=== PATIENT | female | born 1985 | race Caucasian/White ===

== ENCOUNTER 2019-11-15 15:34 | Emergency (ER) | payer OTHER ==
--- NOTE | 2019-11-15 16:41 | EDM.PDOC ---
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 SIDE PAIN Time Seen by Provider: 11/15/19 15:38 Source of Information: Reports: Patient History Limitations: Reports: No Limitations - History of Present Illness INITIAL COMMENTS - FREE TEXT/NARRATIVE: HISTORY AND PHYSICAL: History of present illness: Patient is a 34-year-old female who presents to the ED today with concern of right side pain. Patient states she is approximately 35 weeks in gestation and follows along with Flor Carrasco, scale manager. Patient states she was cleared in the labor and delivery for possible labor before coming down here to the ER to be evaluated. Patient states the pain is in her side and started since this morning. Patient denies any trauma, injury, or falls. Patient denies any associative symptoms. Patient denies any change in vaginal discharge, leaking of water fluids from vagina, or vaginal bleeding. Patient denies any abdominal cramping or lower abdominal pain. Patient denies any back pain. Patient denies fever, chills, chest pain, shortness of breath, or cough. Denies headache, neck stiff ness, change in vision, syncope, or near syncope. Denies nausea, vomiting, diarrhea, constipation, or dysuria. Has not noted any blood in urine or stool. Patient has been eating and drinking appropriately. Review of systems: As per history of present illness and below otherwise all systems reviewed and negative. Past medical history: As per history of present illness and as reviewed below otherwise noncontributory. Surgical history: As per history of present illness and as reviewed below otherwise noncontributory. Social history: See social history for further information Family history: As per history of present illness and as reviewed below otherwise noncontributory. Physical exam: General: Patient is alert, oriented, and in no acute distress. Patient sitting comfortably on exam table. HEENT: Atraumatic, normocephalic, pupils equal and reactive bilaterally, negative for conjunctival pallor or scleral icterus, mucous membranes moist, TMs normal bilaterally, throat clear, neck supple, nontender, trachea midline. No drooling or trismus noted. No meningeal signs. No hot potato voice noted. Lungs: Clear to auscultation, breath sounds equal bilaterally, chest nontender. Heart: S1S2, regular rate and rhythm without overt murmur Abdomen: Physical exam of abdomen is limited due to gravid. Patient points to right sided rib area but negative pain to palpation of this area or entire abdomen. Soft, nondistended, nontender. Negative for masses or hepatosplenomegaly. Negative for costovertebral tenderness. Pelvis: Stable nontender. Genitourinary: Deferred. Rectal: Deferred. Skin: Intact, warm, dry. No lesions or rashes noted. Extremities: Atraumatic, negative for cords or calf pain. Neurovascular unremarkable. Neuro: Awake, alert, oriented. Cranial nerves II through XII unremarkable. Cerebellum unremarkable. Motor and sensory unremarkable throughout. Exam nonfocal. Notes: FHT at bedside 137. Did call and speak to the labor and delivery unit who confirms that they have cleared patient from labor and delivery standpoint just before she came down to the emergency room. I did call and speak personally speak to Flor Carrasco, scale manager on-call, and thoroughly discussed patient's case. She had and states she did just seen patient on the labor and delivery unit just before her coming to the ED. Flor states for patient to go home take some Tylenol and relax and that if pain does not subside to come back to labor and delivery tonight. If patient's pain does subside, Flor states she will see her tomorrow morning in the clinic. Voices understanding and is agreeable to plan of care. Denies any further questions or concerns at this time. Diagnostics: CBC, CMP, UA, Lipase, EKG, trop Therapeutics: Tylenol Prescription: None Impression: Right flank/rib pain , 35 weeks Plan: 1. You can take Tylenol as directed for pain and discomfort. This is safe to use in . 2. Follow-up with Flor Carrasco in the clinic in the morning as discussed or return to labor and delivery as discussed. Call the clinic in the morning to establish an appointment time. 3. Return to the ED as needed and as discussed. Definitive disposition and diagnosis as appropriate pending reevaluation and review of above. right side Pain Score (Numeric/FACES): 6 - Related Data Allergies Allergy/AdvReac Type Severity Reaction Status Date / Time No Known Allergies Allergy Verified 11/15/19 14:22 Home Meds: Home Meds Pnv No.95/Ferrous Fum/Folic AC [ Multivitamin Tablet] 1 tab PO DAILY [History] Past Medical History - Past Surgical History GI Surgical History: Reports: Hernia Repair/Other Social & Family History - Family History Family Medical History: Noncontributory - Tobacco Use Smoking Status *Q: Former Smoker Used Tobacco, but Quit: Yes Month/Year Tobacco Last Used: [id number] - Recreational Drug Use Recreational Drug Use: No ED ROS GENERAL - Review of Systems Review Of Systems: Comprehensive ROS is negative, except as noted in HPI. ED EXAM, GENERAL - Physical Exam Exam: See Below (see dictation) Course - Vital Signs Last Recorded V/S: Last Vital Signs Temp 98.7 F 11/15/19 15:53 Pulse 99 11/15/19 15:53 Resp 18 11/15/19 15:53 BP 96/58 L 11/15/19 15:53 Pulse Ox 100 11/15/19 15:53 - Orders/Labs/Meds Orders: Active Orders 24 hr Category Date Time Status Communication Order [RC] STAT Care 11/15/19 16:40 Active EKG Documentation Completion [RC] STAT Care 11/15/19 16:13 Active CULTURE URINE [RM] Stat Lab 11/15/19 16:44 Received Labs: Laboratory Tests 11/15/19 11/15/19 11/15/19 Range/Units 16:27 16:27 16:27 WBC 10.71 (4.0-11.0) K/uL RBC 3.86 L (4.30-5.90) M/uL Hgb 10.6 L (12.0-16.0) g/dL Hct 32.7 L (36.0-46.0) % MCV 84.7 (80.0-98.0) fL MCH 27.5 (27.0-32.0) pg MCHC 32.4 (31.0-37.0) g/dL RDW Std Deviation 42.4 (28.0-62.0) fl RDW Coeff of Sarah 14 (11.0-15.0) % Plt Count 286 (150-400) K/uL MPV 10.30 (7.40-12.00) fL Neut % (Auto) 85.7 H (48.0-80.0) % Lymph % (Auto) 9.7 L (16.0-40.0) % Humphreys % (Auto) 4.1 (0.0-15.0) % Eos % (Auto) 0.4 (0.0-7.0) % Baso % (Auto) 0.1 (0.0-1.5) % Neut # (Auto) 9.2 H (1.4-5.7) K/uL Lymph # (Auto) 1.0 (0.6-2.4) K/uL Humphreys # (Auto) 0.4 (0.0-0.8) K/uL Eos # (Auto) 0.0 (0.0-0.7) K/uL Baso # (Auto) 0.0 (0.0-0.1) K/uL Nucleated RBC % 0.0 /100WBC Nucleated RBCs # 0 K/uL Sodium 139 (136-145) mmol/L Potassium 3.1 L (3.5-5.1) mmol/L Chloride 103 (98-107) mmol/L Carbon Dioxide 24.9 (21.0-32.0) mmol/L BUN 4 L (7.0-18.0) mg/dL Creatinine 0.7 (0.6-1.0) mg/dL Est Cr Clr Drug Dosing 102.86 mL/min Estimated GFR (MDRD) > 60.0 ml/min Glucose 142 H (74-106) mg/dL Calcium 8.8 (8.5-10.1) mg/dL Total Bilirubin 0.2 (0.2-1.0) mg/dL AST 15 (15-37) IU/L ALT 18 (14-63) IU/L Alkaline Phosphatase 132 H (46-116) U/L Troponin I < 0.050 (0.000-0.056) ng/mL Total Protein 6.6 (6.4-8.2) g/dL Albumin 2.5 L (3.4-5.0) g/dL Globulin 4.1 H (2.6-4.0) g/dL Albumin/Globulin Ratio 0.6 L (0.9-1.6) Lipase 120 (73-393) U/L Urine Color Urine Appearance Urine pH (5.0-8.0) Ur Specific [place] (1.001-1.035) Urine Protein (NEGATIVE) mg/dL Urine Glucose (UA) (NEGATIVE) mg/dL Urine Ketones (NEGATIVE) mg/dL Urine Occult Blood (NEGATIVE) Urine Nitrite (NEGATIVE) Urine Bilirubin (NEGATIVE) Urine Urobilinogen (<2.0) EU/dL Ur Leukocyte Esterase (NEGATIVE) Urine RBC (0-2/HPF) Urine WBC (0-5/HPF) Ur Epithelial Cells (NONE-FEW) Amorphous Sediment (NEGATIVE) Urine Bacteria (NEGATIVE) 11/15/19 Range/Units 16:44 WBC (4.0-11.0) K/uL RBC (4.30-5.90) M/uL Hgb (12.0-16.0) g/dL Hct (36.0-46.0) % MCV (80.0-98.0) fL MCH (27.0-32.0) pg MCHC (31.0-37.0) g/dL RDW Std Deviation (28.0-62.0) fl RDW Coeff of Sarah (11.0-15.0) % Plt Count (150-400) K/uL MPV (7.40-12.00) fL Neut % (Auto) (48.0-80.0) % Lymph % (Auto) (16.0-40.0) % Humph[place]ys % (Auto) (0.0-15.0) % Eos % (Auto) (0.0-7.0) % Baso % (Auto) (0.0-1.5) % Neut # (Auto) (1.4-5.7) K/uL Lymph # (Auto) (0.6-2.4) K/uL [place] # (Auto) (0.0-0.8) K/uL Eos # (Auto) (0.0-0.7) K/uL Baso # (Auto) (0.0-0.1) K/uL Nucleated RBC % /100WBC Nucleated RBCs # K/uL Sodium (136-145) mmol/L Potassium (3.5-5.1) mmol/L Chloride (98-107) mmol/L Carbon Dioxide (21.0-32.0) mmol/L BUN (7.0-18.0) mg/dL Creatinine (0.6-1.0) mg/dL Est Cr Clr Drug Dosing mL/min Estimated GFR (MDRD) ml/min Glucose (74-106) mg/dL Calcium (8.5-10.1) mg/dL Total Bilirubin (0.2-1.0) mg/dL AST (15-37) IU/L ALT (14-63) IU/L Alkaline Phosphatase (46-116) U/L Troponin I (0.000-0.056) ng/mL Total Protein (6.4-8.2) g/dL Albumin (3.4-5.0) g/dL Globulin (2.6-4.0) g/dL Albumin/Globulin Ratio (0.9-1.6) Lipase (73-393) U/L Urine Color YELLOW Urine Appearance SLT CLOUDY Urine pH 7.0 (5.0-8.0) Ur Specific [place] 1.025 (1.001-1.035) Urine Protein TRACE H (NEGATIVE) mg/dL Urine Glucose (UA) 100 H (NEGATIVE) mg/dL Urine Ketones 15 H (NEGATIVE) mg/dL Urine Occult Blood NEGATIVE (NEGATIVE) Urine Nitrite NEGATIVE (NEGATIVE) Urine Bilirubin NEGATIVE (NEGATIVE) Urine Urobilinogen 0.2 (<2.0) EU/dL Ur Leukocyte Esterase SMALL H (NEGATIVE) Urine RBC 0-2 (0-2/HPF) Urine WBC 1-3 (0-5/HPF) Ur Epithelial Cells MODERATE (NONE-FEW) Amorphous Sediment LIGHT (NEGATIVE) Urine Bacteria FEW (NEGATIVE) Meds: Medications Discontinued Medications Generic Name Dose Route Start Last Admin Trade Name Miguelq PRN Reason Stop Dose Admin Acetaminophen 1,000 mg 11/15/19 17:45 Tylenol Extra Strength PO 11/15/19 17:46 ONETIME ONE Departure - Departure Time of Disposition: 17:56 Disposition: Home, Self-Care 01 Clinical Impression: Right flank pain Qualifiers: Weeks of gestation: 35 weeks Qualified Code(s): Z3A.35 - 35 weeks gestation of - Discharge Information Referrals: Flor Carrasco CNM [Primary Care Provider] - Forms: ED Department Discharge Additional Instructions: The following information is given to patients seen in the emergency department who are being discharged to home. This information is to outline your options for follow-up care. We provide all patients seen in our emergency department with a follow-up referral. The need for follow-up, as well as the timing and circumstances, are variable depending upon the specifics of your emergency department visit. If you don't have a primary care physician on staff, we will provide you with a referral. We always advise you to contact your personal physician following an emergency department visit to inform them of the circumstance of the visit and for follow-up with them and/or the need for any referrals to a consulting specialist. The emergency department will also refer you to a specialist when appropriate. This referral assures that you have the opportunity for follow-up care with a specialist. All of these measure are taken in an effort to provide you with optimal care, which includes your follow-up. Under all circumstances we always encourage you to contact your private physician who remains a resource for coordinating your care. When calling for follow-up care, please make the office aware that this follow-up is from your recent emergency room visit. If for any reason you are refused follow-up, please contact the [facility] Emergency Department at and asked to speak to the emergency department charge nurse. [facility] [address] [place] [address] [place] [address] 1. You can take Tylenol as directed for pain and discomfort. This is safe to use in . 2. Follow-up with Flor Carrasco in the clinic in the morning as discussed or return to labor and delivery as discussed. Call the clinic in the morning to establish an appointment time. 3. Return to the ED as needed and as discussed. Sepsis Event Note - Evaluation Sepsis Screening Result: No Definite Risk - Focused Exam Vital Signs: Vital Signs Temp Pulse Resp BP Pulse Ox 11/15/19 15:53 98.7 F 99 18 96/58 L 100 Date Exam was Performed: 11/15/19 Time Exam was Performed: 17:56 - My Orders Last 24 Hours: My Active Orders 11/15/19 16:13 EKG Documentation Completion [RC] STAT 11/15/19 16:40 Communication Order [RC] STAT 11/15/19 16:44 CULTURE URINE [RM] Stat - Assessment/Plan Last 24 Hours: My Active Orders 11/15/19 16:13 EKG Documentation Completion [RC] STAT 11/15/19 16:40 Communication Order [RC] STAT 11/15/19 16:44 CULTURE URINE [RM] Stat
[2019-11-15 17:21] LABS: BLOOD UREA NITROGEN,BUN 4 mg/dL (7.0-18.0); CARBON DIOXIDE,CO2 24.9 mmol/L (21.0-32.0); CHLORIDE,CL 103 mmol/L (98-107); GLUCOSE RANDOM 142 mg/dL (74-106); LIPASE 120 U/L (73-393); POTASSIUM,K 3.1 mmol/L (3.5-5.1); SODIUM,NA 139 mmol/L (136-145)
[2019-11-15] MEDS ORDERED: Acetaminophen 500 MG Tab PO ONE (17:45)
== END 2019-11-15 18:15 | disposition home or self-care (01) ==
LOC: MW.ED 15:34
DX: O99.89 Other specified diseases and conditions complicating pregnancy, childbirth and the puerperium (principal); R10.9 Unspecified abdominal pain; Z87.891 Personal history of nicotine dependence; Z3A.35 35 weeks gestation of pregnancy
CPT/HCPCS: 36415; 80053; 81001; 83690; 84484; 85025; 87086; 93005; 99284; A9270

== ENCOUNTER 2019-11-15 21:56 | Observation (INO) | payer OTHER ==
[2019-11-15] MEDS ORDERED: Acetaminophen/oxyCODONE 325-5 MG Tab ONE (22:05)
[2019-11-15] MEDS ORDERED: Calcium Carbonate 500 MG Tab.Chew PO PRN (23:48)
[2019-11-15] MEDS ORDERED: Calcium Carbonate 500 MG Tab.Chew ONE (23:54)
[2019-11-16] MEDS: Acetaminophen/oxyCODONE 325-5 MG Tab PO PRN ×3 (02:28→11:55)
== END 2019-11-16 12:05 | disposition home or self-care (01) ==
LOC: MW.OB 21:56 → MW.OBCHECK 21:56 → MW.OB 23:30
PROVIDERS: ADMIT Obstetrics & Gynecology; ATTEND Obstetrics & Gynecology
DX: O99.89 Other specified diseases and conditions complicating pregnancy, childbirth and the puerperium (principal); R10.9 Unspecified abdominal pain; Z87.891 Personal history of nicotine dependence; Z3A.35 35 weeks gestation of pregnancy
CPT/HCPCS: 59025; A9270-GY; G0378

== ENCOUNTER 2019-12-13 00:13 | Inpatient (IN) | payer OTHER ==
[2019-12-13] MEDS ORDERED: Carboprost Tromethamine 250 MCG/1 ML Amp IM PRN (00:34)
[2019-12-13] MEDS ORDERED: Methylergonovine 0.2 MG/1 ML Amp IM PRN (00:34)
[2019-12-13] MEDS ORDERED: Water For Irrigation,Sterile 1,000 ML Container IRR PRN (00:34)
[2019-12-13] MEDS ORDERED: Nalbuphine 10 MG/1 ML Vial IVPUSH PRN (00:34)
[2019-12-13] MEDS ORDERED: Tranexamic Acid 1,000 MG in Sodium Chloride 0.9% 100 ML IV PRN (00:34)
[2019-12-13] MEDS ORDERED: Sodium Chloride 0.9% 2.5 ML Syringe FLUSH PRN (00:34)
[2019-12-13] MEDS ORDERED: Misoprostol 200 MCG Tab PO PRN (00:34)
[2019-12-13] MEDS ORDERED: Terbutaline 1 MG/ML SDV SUBCUT PRN (00:34)
[2019-12-13] MEDS ORDERED: Sodium Chloride 0.9% 10 ML Syringe FLUSH PRN (00:34)
[2019-12-13] MEDS ORDERED: Lidocaine 1% 50 ML MDV INJECT PRN (00:34)
[2019-12-13] MEDS ORDERED: Oxytocin/0.9 % Sodium Chloride 30 UNIT/500 ML BAG IV SCH ×2 (00:45)
[2019-12-13] MEDS ORDERED: Misoprostol 25 MCG (1/4 of 100 MCG) Tab VAG PRN ×2 (01:00→05:00)
[2019-12-13] MEDS: Misoprostol 25 MCG (1/4 of 100 MCG) Tab PO SCH ×2 (01:26→11:57)
--- NOTE | 2019-12-13 08:12 | PCM.LDHP ---
L&D History of Present Illness - General Date of Service: 12/13/19 Admit Problem/Dx: Patient Status Order with Admit Dx/Problem 12/13/19 00:35 Patient Status [ADT] Routine Patient Status [ADT] Routine Admission Diagnosis/Problem Admission Diagnosis/Problem Planned Source of Information: Patient History Limitations: Reports: No Limitations - History of Present Illness Improves with: Reports: None Worsens with: Reports: None Associated Symptoms: Reports: N - Related Data Allergies/Adverse Reactions: Allergies Allergy/AdvReac Type Severity Reaction Status Date / Time No Known Allergies Allergy Verified 12/13/19 00:33 Home Medications: Home Meds Pnv No.95/Ferrous Fum/Folic AC [ Multivitamin Tablet] 1 tab PO DAILY [History] Past Medical History - Past Health History Medical/Surgical History: Denies Medical/Surgical History HEENT History: Reports: None Cardiovascular History: Reports: None Respiratory History: Reports: None Gastrointestinal History: Reports: None Genitourinary History: Reports: None 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: Musculoskeletal History: Reports: None Neurological History: Reports: None Psychiatric History: Reports: None Endocrine/Metabolic History: Reports: None Hematologic History: Reports: None Immunologic History: Reports: None Oncologic (Cancer) History: Reports: None Dermatologic History: Reports: None - Infectious Disease History Infectious Disease History: Reports: Chicken Pox - Past Surgical History Head Surgeries/Procedures: Reports: None HEENT Surgical History: Reports: None Cardiovascular Surgical History: Reports: None GI Surgical History: Reports: Hernia Repair/Other Female Surgical History: Reports: None Endocrine Surgical History: Reports: None Neurological Surgical History: Reports: None Musculoskeletal Surgical History: Reports: None Oncologic Surgical History: Reports: None Dermatological Surgical History: Reports: None Social & Family History - Family History Family Medical History: Noncontributory HEENT: Reports: None Cardiac: Reports: Hypertension Respiratory: Reports: None GI: Reports: None : Reports: None OBGYN: Reports: None Musculoskeletal: Reports: None Neurological: Reports: None Psychiatric: Reports: None Endocrine/Metabolic: Reports: None Hematologic: Reports: None Immunologic: Reports: None Dermatologic: Reports: None Oncologic: Reports: Breast - Tobacco Use Smoking Status *Q: Never Smoker Second Hand Smoke Exposure: No - Caffeine Use Caffeine Use: Reports: Coffee, Soda - Recreational Drug Use Recreational Drug Use: No H&P Review of Systems - Review of Systems: Review Of Systems: See Below General: Reports: No Symptoms HEENT: Reports: No Symptoms Pulmonary: Reports: No Symptoms Cardiovascular: Reports: No Symptoms Gastrointestinal: Reports: No Symptoms Genitourinary: Reports: No Symptoms Musculoskeletal: Reports: No Symptoms Skin: Reports: No Symptoms Psychiatric: Reports: No Symptoms Neurological: Reports: No Symptoms Hematologic/Lymphatic: Reports: No Symptoms Immunologic: Reports: No Symptoms L&D Exam - Exam Exam: See Below - Vital Signs Weight: 72.575 kg - OB Specific Contraction Intensity: Mild to Moderate Movement: Active Heart Tones: Present Presentation: Vertex - Cameron Score Cameron Score Cervix Position: Midposition Cameron Score Consistency: Soft Cameron Score Effacement: 51-70% Cameron Score Dilation: 3-4 cm Cameron Score 's Station: -3 Cameron Score Total: 7 - Exam General: Alert, Oriented HEENT: PERRLA, Conjunctiva Clear, EACs Clear, EOMI, Hearing Intact, Mucosa Moist & [place], Nares Patent, Normal Nasal Septum, Posterior Pharynx Clear, TMs Clear Neck: Supple, Trachea Midline Lungs: Clear to Auscultation, Normal Respiratory Effort Cardiovascular: Regular Rate, Regular Rhythm GI/Abdominal Exam: Normal Bowel Sounds, Soft, Non-Tender, No Organomegaly, No Distention, No Abnormal Bruit, No Mass, Pelvis Stable Rectal Exam: Normal Exam, Normal Rectal Tone Genitourinary: Normal external exam, Normal bimanual exam, Normal speculum exam Back Exam: Normal Inspection, Full Range of Motion Extremities: Normal Inspection, Normal Range of Motion, Non-Tender, No Pedal Edema, Normal Capillary Refill Skin: Warm, Dry, Intact Neurological: Cranial Nerves Intact, Reflexes Equal Bilateral Psychiatric: Alert, Normal Affect, Normal Mood - Patient Data Lab Results Last 24 hrs: Laboratory Results - last 24 hr 12/13/19 12/13/19 Range/Units 00:44 00:44 WBC 7.24 (4.0-11.0) K/uL RBC 4.06 L (4.30-5.90) M/uL Hgb 10.7 L (12.0-16.0) g/dL Hct 33.3 L (36.0-46.0) % MCV 82.0 (80.0-98.0) fL MCH 26.4 L (27.0-32.0) pg MCHC 32.1 (31.0-37.0) g/dL RDW Std Deviation 42.5 (28.0-62.0) fl RDW Coeff of Sarah 15 (11.0-15.0) % Plt Count 275 (150-400) K/uL MPV 10.90 (7.40-12.00) fL Blood Type AB POSITIVE Antibody Screen NEGATIVE Result Diagrams: 12/13/19 00:44 Problem List Initiated/Reviewed/Updated: Yes Orders Last 24hrs: Active Orders 24 hr Category Date Time Status Patient Status [ADT] Routine ADT 12/13/19 00:35 Active Patient Status [ADT] Routine ADT 12/13/19 00:35 Active Bedrest Bathroom Privileges [RC] ASDIRECTED Care 12/13/19 00:35 Active Communication Order [RC] ASDIRECTED Care 12/13/19 00:35 Active Communication Order [RC] ASDIRECTED Care 12/13/19 00:35 Active Communication Order [RC] ASDIRECTED Care 12/13/19 00:35 Active May Shower [RC] ASDIRECTED Care 12/13/19 00:35 Active Notify Provider [RC] PRN Care 12/13/19 00:35 Active Notify Provider [RC] PRN Care 12/13/19 00:35 Active Notify Provider [RC] PRN Care 12/13/19 00:35 Active Notify Provider [RC] STAT Care 12/13/19 00:35 Active Oxygen Therapy [RC] ASDIRECTED Care 12/13/19 00:35 Active Up ad [place] [RC] ASDIRECTED Care 12/13/19 00:35 Active Vital Signs [RC] PER UNIT ROUTINE Care 12/13/19 00:35 Active Regular Diet [DIET] Diet 12/13/19 Breakfast Active RPR (SYPHILIS SERO) W/ RFLX [REF] Routine Lab 12/13/19 00:44 Received Carboprost Tromethamine [Hemabate DS] Med 12/13/19 00:34 Active 250 mcg IM ASDIRECTED PRN Lactated Ringers [Ringers, Lactated] 1,000 ml Med 12/13/19 00:45 Active IV ASDIRECTED Lidocaine 1% [Xylocaine 1%] Med 12/13/19 00:34 Active 50 ml INJECT ONETIME PRN Methylergonovine [Methergine] Med 12/13/19 00:34 Active 0.2 mg IM ASDIRECTED PRN Nalbuphine [Nubain] Med 12/13/19 00:34 Active 10 mg IVPUSH Q1H PRN Oxytocin/0.9 % Sodium Chloride [Oxytocin 30 Unit/500 ML Med 12/13/19 00:45 Active -NS] 30 unit in 500 ml IV TITRATE Oxytocin/0.9 % Sodium Chloride [Oxytocin 30 Unit/500 ML Med 12/13/19 00:45 Active -NS] 30 unit in 500 ml IV TITRATE Sodium Chloride 0.9% [Saline Flush] Med 12/13/19 00:34 Active 10 ml FLUSH ASDIRECTED PRN Sodium Chloride 0.9% [Saline Flush] Med 12/13/19 00:34 Active 2.5 ml FLUSH ASDIRECTED PRN Terbutaline [Brethine] Med 12/13/19 00:34 Active 0.25 mg SUBCUT ASDIRECTED PRN Tranexamic Acid [Cyklokapron] 1,000 mg Med 12/13/19 00:34 Active Sodium Chloride 0.9% [Normal Saline] 100 ml IV ONETIME Water For Irrigation,Sterile [Sterile Water for Med 12/13/19 00:34 Active Irrigation] 1,000 ml IRR ASDIRECTED PRN miSOPROStoL [Cytotec] Med 12/13/19 00:34 Active 200 mcg PO ONETIME PRN miSOPROStoL [Cytotec] Med 12/13/19 01:00 Active 25 mcg PO Q4H miSOPROStoL [Cytotec] Med 12/13/19 01:00 Active 25 mcg VAG ONETIME PRN miSOPROStoL [Cytotec] Med 12/13/19 05:00 Active 25 mcg VAG Q4H PRN Scalp Electrode [WOMSER] Per Unit Routine Oth 12/13/19 00:35 Ordered Medication Administration Instruction [OM.PC] Q3H Oth 12/13/19 00:45 Ordered Peripheral IV Insertion Adult [OM.PC] Routine Oth 12/13/19 00:35 Ordered Resuscitation Status Routine Resus Stat 12/13/19 00:34 Ordered Medication Orders Carboprost Tromethamine (Hemabate Ds) 250 mcg IM ASDIRECTED PRN PRN Reason: Post Hemorrhage Lactated Ringer's (Ringers, Lactated) 1,000 mls @ 150 mls/hr IV ASDIRECTED DWAINE Oxytocin/Sodium Chloride (Oxytocin 30 Unit/500 Ml-Ns) 30 unit in 500 mls @ 2 mls/hr IV TITRATE DWAINE; Protocol Oxytocin/Sodium Chloride (Oxytocin 30 Unit/500 Ml-Ns) 30 unit in 500 mls @ 500 mls/hr IV TITRATE DWAINE Tranexamic Acid 1,000 mg/ (Sodium Chloride) 110 mls @ 660 mls/hr IV ONETIME PRN PRN Reason: Bleeding Lidocaine HCl (Xylocaine 1%) 50 ml INJECT ONETIME PRN PRN Reason: Laceration repair Methylergonovine Maleate (Methergine) 0.2 mg IM ASDIRECTED PRN PRN Reason: Post Hemorrhage Misoprostol (Cytotec) 25 mcg VAG ONETIME PRN PRN Reason: Cervical Ripening Last Admin: 12/13/19 01:26 Dose: 25 mcg Misoprostol (Cytotec) 25 mcg VAG Q4H PRN PRN Reason: Cervical Ripening Misoprostol (Cytotec) 200 mcg PO ONETIME PRN PRN Reason: Post Hemorrhage Misoprostol (Cytotec) 25 mcg PO Q4H DWAINE Last Admin: 12/13/19 01:26 Dose: 25 mcg Nalbuphine HCl (Nubain) 10 mg IVPUSH Q1H PRN PRN Reason: Pain (severe 7-10) Sodium Chloride (Saline Flush) 10 ml FLUSH ASDIRECTED PRN PRN Reason: Keep Vein Open Sodium Chloride (Saline Flush) 2.5 ml FLUSH ASDIRECTED PRN PRN Reason: Keep Vein Open Sterile Water (Sterile Water For Irrigation) 1,000 ml IRR ASDIRECTED PRN PRN Reason: delivery Terbutaline Sulfate (Brethine) 0.25 mg SUBCUT ASDIRECTED PRN PRN Reason: Tacysystole Assessment/Plan Comment:: [id number] wks admitted for elective Induction.
[2019-12-13] MEDS: Lactated Ringers 1,000 ML IV SCH ×2 (08:46→09:48)
[2019-12-13] MEDS ORDERED: Ropivacaine HCl/PF 100 ML ONE (09:31)
[2019-12-13] MEDS ORDERED: fentaNYL 100 MCG/2 ML SDV ONE (09:31)
--- NOTE | 2019-12-13 09:48 | PCM.PREANE ---
Preanesthetic Assessment - Anesthesia/Transfusion/Family Hx Anesthesia History: Prior Anesthesia Without Reaction Family History of Anesthesia Reaction: No Transfusion History: No Prior Transfusion(s) Type of Transfusion Reactions: Reports: Unknown - Physical Assessment NPO Status Date: 12/13/19 NPO Status Time: 06:00 Height: 1.65 m Weight: 72.575 kg ASA Class: 1 - Lab Values: Laboratory Last Values WBC 7.24 K/uL (4.0-11.0) 12/13/19 00:44 RBC 4.06 M/uL (4.30-5.90) L 12/13/19 00:44 Hgb 10.7 g/dL (12.0-16.0) L 12/13/19 00:44 Hct 33.3 % (36.0-46.0) L 12/13/19 00:44 MCV 82.0 fL (80.0-98.0) 12/13/19 00:44 MCH 26.4 pg (27.0-32.0) L 12/13/19 00:44 MCHC 32.1 g/dL (31.0-37.0) 12/13/19 00:44 RDW Std Deviation 42.5 fl (28.0-62.0) 12/13/19 00:44 RDW Coeff of Sarah 15 % (11.0-15.0) 12/13/19 00:44 Plt Count 275 K/uL (150-400) 12/13/19 00:44 MPV 10.90 fL (7.40-12.00) 12/13/19 00:44 Blood Type AB POSITIVE 12/13/19 00:44 Antibody Screen NEGATIVE 12/13/19 00:44 - Allergies Allergies/Adverse Reactions: Allergies Allergy/AdvReac Type Severity Reaction Status Date / Time No Known Allergies Allergy Verified 12/13/19 00:33 - Acknowledgements Anesthesia Type Planned: Epidural Pt an Appropriate Candidate for the Planned Anesthesia: Yes Alternatives and Risks of Anesthesia Discussed w Pt/Guardian: Yes Pt/Guardian Understands and Agrees with Anesthesia Plan: Yes PreAnesthesia Questionnaire - Past Health History Medical/Surgical History: Denies Medical/Surgical History HEENT History: Reports: None Cardiovascular History: Reports: None Respiratory History: Reports: None Gastrointestinal History: Reports: None Genitourinary History: Reports: None 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: Musculoskeletal History: Reports: None Neurological History: Reports: None Psychiatric History: Reports: None Endocrine/Metabolic History: Reports: None Hematologic History: Reports: None Immunologic History: Reports: None Oncologic (Cancer) History: Reports: None Dermatologic History: Reports: None - Infectious Disease History Infectious Disease History: Reports: Chicken Pox - Past Surgical History Head Surgeries/Procedures: Reports: None HEENT Surgical History: Reports: None Cardiovascular Surgical History: Reports: None GI Surgical History: Reports: Hernia Repair/Other Female Surgical History: Reports: None Endocrine Surgical History: Reports: None Neurological Surgical History: Reports: None Musculoskeletal Surgical History: Reports: None Oncologic Surgical History: Reports: None Dermatological Surgical History: Reports: None - SUBSTANCE USE Smoking Status *Q: Never Smoker Second Hand Smoke Exposure: No Recreational Drug Use History: No - HOME MEDS Home Medications: Home Meds Pnv No.95/Ferrous Fum/Folic AC [ Multivitamin Tablet] 1 tab PO DAILY [History] - CURRENT (IN HOUSE) MEDS Current Meds: Current Medications Carboprost Tromethamine (Hemabate Ds) 250 mcg IM ASDIRECTED PRN PRN Reason: Post Hemorrhage Lactated Ringer's (Ringers, Lactated) 1,000 mls @ 150 mls/hr IV ASDIRECTED DWAINE Last Admin: 12/13/19 08:46 Dose: 999 mls/hr Oxytocin/Sodium Chloride (Oxytocin 30 Unit/500 Ml-Ns) 30 unit in 500 mls @ 2 mls/hr IV [facility]; Protocol Oxytocin/Sodium Chloride (Oxytocin 30 Unit/500 Ml-Ns) 30 unit in 500 mls @ 500 mls/hr [facility] Tranexamic Acid 1,000 mg/ (Sodium Chloride) 110 mls @ 660 mls/hr IV ONETIME PRN PRN Reason: Bleeding Lidocaine HCl (Xylocaine 1%) 50 ml INJECT ONETIME PRN PRN Reason: Laceration repair Methylergonovine Maleate (Methergine) 0.2 mg IM ASDIRECTED PRN PRN Reason: Post Hemorrhage Misoprostol (Cytotec) 25 mcg VAG ONETIME PRN PRN Reason: Cervical Ripening Last Admin: 12/13/19 01:26 Dose: 25 mcg Misoprostol (Cytotec) 25 mcg VAG Q4H PRN PRN Reason: Cervical Ripening Misoprostol (Cytotec) 200 mcg PO ONETIME PRN PRN Reason: Post Hemorrhage Misoprostol (Cytotec) 25 mcg PO Q4H DWAINE Last Admin: 12/13/19 01:26 Dose: 25 mcg Nalbuphine HCl (Nubain) 10 mg IVPUSH Q1H PRN PRN Reason: Pain (severe 7-10) Last Admin: 12/13/19 08:52 Dose: 10 mg Sodium Chloride (Saline Flush) 10 ml FLUSH ASDIRECTED PRN PRN Reason: Keep Vein Open Sodium Chloride (Saline Flush) 2.5 ml FLUSH ASDIRECTED PRN PRN Reason: Keep Vein Open Sterile Water (Sterile Water For Irrigation) 1,000 ml IRR ASDIRECTED PRN PRN Reason: delivery Terbutaline Sulfate (Brethine) 0.25 mg SUBCUT ASDIRECTED PRN PRN Reason: Tacysystole Discontinued Medications Fentanyl (Sublimaze) Confirm Administered Dose 100 mcg .ROUTE .STK-MED ONE Stop: 12/13/19 09:32 Ropivacaine (Naropin 0.2%) Confirm Administered Dose 100 mls @ as directed .ROUTE .STK-MED ONE Stop: 12/13/19 09:32
--- NOTE | 2019-12-13 09:51 | PCM.PRNOTE ---
- Free Text/Narrative Note: Anes Note Patietn requests epidural for L&D. Sitting position. Level L3-L4 midline approach. Sterile technique. Chloraprep scrub to lumbar area. Sterile fenestrated drape applied. Epidural space easily achieved single attempt with ease using FREDERICK technique. FREDERICK at 3 cm. Cath threaded 5 cm with ease. Cath secured at 9 cm at skin using sterile clear adhesive dressing. 0941 test 3 cc 1.5% lido with epi negative. 0944 load 10 cc 0.2% ropiv with 1 mcg cc fentanyl in slow divided doses. 0948 Pump started 90 cc same solution at 8 cc hr with 6 cc q 20 min prn bolus. Debra well. Time with patient [id number] Yung Hwang [employer]AD [employer]GER
--- NOTE | 2019-12-13 10:59 | PCM.DEL ---
L & D Note - General Info Date of Service: 12/13/19 Mother's Due Date: 12/18/19 - Delivery Note Labor: Augmented by ARM Cervical Ripening Method: Oxytocin Delivery Outcome: Livebirth Delivery Method: Spontaneous Vaginal Delivery-Single Delivery Mode: Spontaneous Presentation: Left Occiput Transverse (LOT) Nuchal Cord: None Anesthesia Type: Epidural Amniotic Fluid Description: Clear Episiotomy Type: None Laceration: Perineal (Hemostatic external skin tear) Placenta: Intact, Spontaneous Cord: 3 Vessels Estimated Blood Loss: 150 Resuscitation Needed: No [place]: Bulb Syringe, Warmed, Prue Used, Warmer Used Score 1 min: 8 Score 5 min: 9 Second Stage Interventions: Reports: Encouragement Given, Pushing, Feet in Foot Rests Delivery Comments (Free Text/Narrative):: Sylvia is a 34 yo with a of viable, term, vigorous NBM at 39.2 wks gestation re: elective IOL. AB pos, Ab screen neg, RI, GBS neg. NBM delivered LOT, cried spontaneously within 10 seconds of , HR 120 bpm, warmed, dried, stimulated and placed on maternal abdomen. Placenta 4 min later, intact, 3VC, accessory lobes noted. Umbilical cord clamped x 2 and cut by FOB. Cord blood collected by provider. Perineum intact except small superficial external skin tear noted, hemostatic, not repaired. Dr. Epperson present for . - General Info Date of Service: 12/13/19 Admission Dx/Problem (Free Text): Patient Status Order with Admit Dx/Problem 12/13/19 00:35 Patient Status [ADT] Routine Patient Status [ADT] Routine Admission Diagnosis/Problem Admission Diagnosis/Problem Planned Functional Status: Reports: Pain Controlled Pain Score: 2 - Review of Systems General: Reports: No Symptoms HEENT: Reports: No Symptoms Pulmonary: Reports: No Symptoms Cardiovascular: Reports: No Symptoms Gastrointestinal: Reports: No Symptoms Genitourinary: Reports: No Symptoms Musculoskeletal: Reports: No Symptoms Skin: Reports: No Symptoms Neurological: Reports: No Symptoms Psychiatric: Reports: No Symptoms - Patient Data Weight - Most Recent: 160 lb Lab Results Last 24 Hours: Laboratory Results - last 24 hr 12/13/19 12/13/19 Range/Units 00:44 00:44 WBC 7.24 (4.0-11.0) K/uL RBC 4.06 L (4.30-5.90) M/uL Hgb 10.7 L (12.0-16.0) g/dL Hct 33.3 L (36.0-46.0) % MCV 82.0 (80.0-98.0) fL MCH 26.4 L (27.0-32.0) pg MCHC 32.1 (31.0-37.0) g/dL RDW Std Deviation 42.5 (28.0-62.0) fl RDW Coeff of Sarah 15 (11.0-15.0) % Plt Count 275 (150-400) K/uL MPV 10.90 (7.40-12.00) fL Blood Type AB POSITIVE Antibody Screen NEGATIVE Med Orders - Current: Current Medications Carboprost Tromethamine (Hemabate Ds) 250 mcg IM ASDIRECTED PRN PRN Reason: Post Hemorrhage Lactated Ringer's (Ringers, Lactated) 1,000 mls @ 150 mls/hr IV ASDIRECTED DWAINE Last Admin: 12/13/19 09:48 Dose: 150 mls/hr Oxytocin/Sodium Chloride (Oxytocin 30 Unit/500 Ml-Ns) 30 unit in 500 mls @ 2 mls/hr IV TITRATE [facility]; Protocol Oxytocin/Sodium Chloride (Oxytocin 30 Unit/500 Ml-Ns) 30 unit in 500 mls @ 500 mls/hr IV TITRATE [facility]INE Tranexamic Acid 1,000 mg/ (Sodium Chloride) 110 mls @ 660 mls/hr IV ONETIME PRN PRN Reason: Bleeding Lidocaine HCl (Xylocaine 1%) 50 ml INJECT ONETIME PRN PRN Reason: Laceration repair Methylergonovine Maleate (Methergine) 0.2 mg IM ASDIRECTED PRN PRN Reason: Post Hemorrhage Misoprostol (Cytotec) 25 mcg VAG ONETIME PRN PRN Reason: Cervical Ripening Last Admin: 12/13/19 01:26 Dose: 25 mcg Misoprostol (Cytotec) 25 mcg VAG Q4H PRN PRN Reason: Cervical Ripening Misoprostol (Cytotec) 200 mcg PO ONETIME PRN PRN Reason: Post Hemorrhage Misoprostol (Cytotec) 25 mcg PO Q4H DWAINE Last Admin: 12/13/19 01:26 Dose: 25 mcg Nalbuphine HCl (Nubain) 10 mg IVPUSH Q1H PRN PRN Reason: Pain (severe 7-10) Last Admin: 12/13/19 08:52 Dose: 10 mg Sodium Chloride (Saline Flush) 10 ml FLUSH ASDIRECTED PRN PRN Reason: Keep Vein Open Sodium Chloride (Saline Flush) 2.5 ml FLUSH ASDIRECTED PRN PRN Reason: Keep Vein Open Sterile Water (Sterile Water For Irrigation) 1,000 ml IRR ASDIRECTED PRN PRN Reason: delivery Terbutaline Sulfate (Brethine) 0.25 mg SUBCUT ASDIRECTED PRN PRN Reason: Tacysystole Discontinued Medications Fentanyl (Sublimaze) Confirm Administered Dose 100 mcg .ROUTE .STK-MED ONE Stop: 12/13/19 09:32 Ropivacaine (Naropin 0.2%) Confirm Administered Dose 100 mls @ as directed .ROUTE .GoNoggingMED ONE Stop: 12/13/19 09:32 - Exam General: Alert, Oriented HEENT: Pupils Equal, Pupils Reactive, Mucous Membr. Moist/[place] Neck: Supple Lungs: Clear to Auscultation, Normal Respiratory Effort Cardiovascular: Regular Rate, Regular Rhythm GI/Abdominal Exam: Normal Bowel Sounds, Soft, Non-Tender, No Organomegaly, No Distention, No Abnormal Bruit, No Mass, Pelvis Stable (Female) Exam: Normal External Exam, Other (Sandoval catheter removed by provider immediately prior to of NBM) Back Exam: Normal Inspection, Full Range of Motion Extremities: Normal Inspection, Normal Range of Motion, Non-Tender, No Pedal Edema, Normal Capillary Refill Skin: Warm, Dry, Intact Neurological: No New Focal Deficit, Normal Gait Psy/Mental Status: Alert, Normal Affect, Normal Mood - Problem List & Annotations (1) (normal spontaneous vaginal delivery) SNOMED Code(s): 38013563, 737752597 Code(s): O80 - ENCOUNTER FOR FULL-TERM UNCOMPLICATED DELIVERY Status: Acute Priority: High Current Visit: Yes - Problem List Review Problem List Initiated/Reviewed/Updated: Yes - Assessment Assessment:: Sylvia is a 34 yo with a of viable, term, vigorous NBM at 39.2 wks gestation re: elective IOL. AB pos, Ab screen neg, RI, GBS neg. NBM delivered LOT, cried spontaneously within 10 seconds of , HR 120 bpm, warmed, dried, stimulated and placed on maternal abdomen. Placenta 4 min later, intact, 3VC, accessory lobes noted. Umbilical cord clamped x 2 and cut by FOB. Cord blood collected by provider. Perineum intact except small superficial external skin tear noted, hemostatic, not repaired. Dr. Epperson present for . - Plan Plan:: Continue with normal POC S/P . See orders
[2019-12-13] MEDS ORDERED: Acetaminophen 500 MG Tab PO PRN ×2 (11:03)
[2019-12-13] MEDS ORDERED: Witch Hazel Medicated Pads 40/Jar TOP PRN (11:03)
[2019-12-13] MEDS ORDERED: Benzocaine/Menthol 20%-0.5% Spray 78 GM Cannister TOP PRN (11:03)
[2019-12-13] MEDS ORDERED: Lanolin 100% Cream 7 GM Tube TOP PRN (11:03)
[2019-12-13] MEDS ORDERED: oxyCODONE 5 MG Tab PO PRN (11:03)
[2019-12-13] MEDS ORDERED: Ibuprofen 400 MG Tab PO PRN (11:03)
[2019-12-13] MEDS ORDERED: Bisacodyl 10 MG Supp RECTAL PRN (11:03)
[2019-12-13] MEDS: Ibuprofen 800 MG Tab PO PRN (21:21)
[2019-12-13] MEDS: Docusate Sodium 100 MG Cap PO PRN (21:22)
--- NOTE | 2019-12-14 08:01 | PCM.DCSUM1 ---
Discharge Summary - Hospital Course Free Text/Narrative:: Sylvia is a 34 yo S/P of viable NBM 1 day ago. AB pos, RI, GBS neg. VSS, hemodynamically stable, afebrile, ambulating independently, EBFing without difficulty, urinating without difficulty, passing gas, eating and drinking well. Reports moderate rubra lochia, no clots. Pain 2/10, mild discomfort when ambulating, well managed with rest and PO ibuprofen. Denies JACQUES , dizziness, SOB, chest pain, visual changes, edema, or other complaints or concerns at this time. Plans for circumcision of NBM today prior to discharge. Patient verbally expresses desire and readiness to be discharged home today. Diagnosis: Stroke: No - Discharge Data Discharge Date: 12/14/19 Discharge Disposition: Home, Self-Care 01 Condition: Good - Referral to Home Health Primary Care Physician: PCP None - Discharge Diagnosis/Problem(s) (1) (normal spontaneous vaginal delivery) SNOMED Code(s): 52113188, 270312209 ICD Code: O80 - ENCOUNTER FOR FULL-TERM UNCOMPLICATED DELIVERY Status: Acute Priority: High Current Visit: Yes (2) care and examination of lactating mother SNOMED Code(s): 991921715, 802619290 ICD Code: Z39.1 - ENCOUNTER FOR CARE AND EXAMINATION OF LACTATING MOTHER Status: Acute Priority: High Current Visit: Yes - Patient Instructions Diet: Regular Diet as Tolerated, Drink 8-10+ Glasses/Day Driving: May Drive Today Showering/Bathing: May Shower Notify Provider of: Fever, Increased Pain, Swelling and Redness, Drainage, Nausea and/or Vomiting Other/Special Instructions: Warning S/Ss, when to call for help reviewed with patient. No questions, comments, or concerns at this time. - Discharge Plan *PRESCRIPTION DRUG MONITORING PROGRAM REVIEWED*: No *COPY OF PRESCRIPTION DRUG MONITORING REPORT IN PATIENT LYRIC: No Prescriptions/Med Rec: Ibuprofen [Motrin] 800 mg PO Q8HR PRN 1 Days #90 tablet PRN Reason: Pain Home Medications: Home Meds Pnv No.95/Ferrous Fum/Folic AC [ Multivitamin Tablet] 1 tab PO DAILY [History] Ibuprofen [Motrin] 800 mg PO Q8HR PRN 1 Days #90 tablet 03/26/20 [Rx] Oxygen Therapy Mode: Room Air Patient Handouts: Care After Vaginal Delivery Referrals: [facility] [Outside] Peri Weeks CNM [Mid-] - 01/24/20 3:30 pm - Discharge Summary/Plan Comment DC Time >30 min.: Yes (May be discharged today) - General Info Date of Service: 12/14/19 Admission Dx/Problem (Free Text: Patient Status Order with Admit Dx/Problem 12/13/19 00:35 Patient Status [ADT] Routine Patient Status [ADT] Routine Admission Diagnosis/Problem Admission Diagnosis/Problem Planned Functional Status: Reports: Pain Controlled Numeric/FACES Score: 0 - Review of Systems General: Reports: No Symptoms HEENT: Reports: No Symptoms Pulmonary: Reports: No Symptoms Cardiovascular: Reports: No Symptoms Gastrointestinal: Reports: No Symptoms Genitourinary: Reports: No Symptoms Musculoskeletal: Reports: No Symptoms Skin: Reports: No Symptoms Neurological: Reports: No Symptoms Psychiatric: Reports: No Symptoms - Patient Data Vitals - Most Recent: Last Vital Signs Temp 97.3 F 12/14/19 05:00 Pulse 67 12/14/19 05:00 Resp 16 12/14/19 05:00 BP 95/51 L 12/14/19 05:00 Pulse Ox 97 12/14/19 05:00 Weight - Most Recent: 160 lb Med Orders - Current: Current Medications Acetaminophen (Tylenol Extra Strength) 500 mg PO Q4H PRN PRN Reason: Pain Acetaminophen (Tylenol Extra Strength) 1,000 mg PO Q4H PRN PRN Reason: Pain Benzocaine/Menthol (Dermoplast Pain Relief 20%-0.5% [place]) 78 gm TOP ASDIRECTED PRN PRN Reason: Perineal Comfort Measure Last Admin: 12/13/19 21:24 Dose: 1 canister Bisacodyl (Dulcolax) 10 mg RECTAL ONETIME PRN PRN Reason: Constipation Docusate Sodium (Colace) 100 mg PO BID PRN PRN Reason: Constipation Last Admin: 12/13/19 21:22 Dose: 100 mg Emollient Ointment (Lansinoh Hpa) 0 gm TOP ASDIRECTED PRN PRN Reason: Sore Nipples Last Admin: 12/13/19 21:23 Dose: 7 gm Ibuprofen (Motrin) 400 mg PO Q4H PRN PRN Reason: Pain Ibuprofen (Motrin) 800 mg PO Q6H PRN PRN Reason: Pain Last Admin: 12/13/19 21:21 Dose: 800 mg Oxycodone HCl (Oxycodone) 5 mg PO Q2H PRN PRN Reason: Pain Witch Lalitha (Tucks) 1 pad TOP ASDIRECTED PRN PRN Reason: comfort care Last Admin: 12/13/19 21:24 Dose: 1 tub Discontinued Medications Carboprost Tromethamine (Hemabate Ds) 250 mcg IM ASDIRECTED PRN PRN Reason: Post Hemorrhage Fentanyl (Sublimaze) Confirm Administered Dose 100 mcg .ROUTE .Clerk-MED ONE Stop: 12/13/19 09:32 Last Admin: 12/13/19 11:58 Dose: Not Given Lactated Ringer's (Ringers, Lactated) 1,000 mls @ 150 mls/hr IV ASDIRECTED DWAINE Last Admin: 12/13/19 09:48 Dose: 150 mls/hr Oxytocin/Sodium Chloride (Oxytocin 30 Unit/500 Ml-Ns) 30 unit in 500 mls @ 2 mls/hr IV TITRATE [facility]; Protocol Oxytocin/Sodium Chloride (Oxytocin 30 Unit/500 Ml-Ns) 30 unit in 500 mls @ 500 mls/hr IV TITRATE DWAINE Last Admin: 12/13/19 10:32 Dose: 999 mls/hr Tranexamic Acid 1,000 mg/ (Sodium Chloride) 110 mls @ 660 mls/hr IV ONETIME PRN PRN Reason: Bleeding Ropivacaine (Naropin 0.2%) Confirm Administered Dose 100 mls @ as directed .ROUTE .STT-ZONE-MED ONE Stop: 12/13/19 09:32 Last Admin: 12/13/19 11:57 Dose: Not Given Lidocaine HCl (Xylocaine 1%) 50 ml INJECT ONETIME PRN PRN Reason: Laceration repair Methylergonovine Maleate (Methergine) 0.2 mg IM ASDIRECTED PRN PRN Reason: Post Hemorrhage Misoprostol (Cytotec) 25 mcg VAG ONETIME PRN PRN Reason: Cervical Ripening Last Admin: 12/13/19 01:26 Dose: 25 mcg Misoprostol (Cytotec) 25 mcg VAG Q4H PRN PRN Reason: Cervical Ripening Misoprostol (Cytotec) 200 mcg PO ONETIME PRN PRN Reason: Post Hemorrhage Misoprostol (Cytotec) 25 mcg PO Q4H DWAINE Last Admin: 12/13/19 11:57 Dose: Not Given Nalbuphine HCl (Nubain) 10 mg IVPUSH Q1H PRN PRN Reason: Pain (severe 7-10) Last Admin: 12/13/19 08:52 Dose: 10 mg Sodium Chloride (Saline Flush) 10 ml FLUSH ASDIRECTED PRN PRN Reason: Keep Vein Open Sodium Chloride (Saline Flush) 2.5 ml FLUSH ASDIRECTED PRN PRN Reason: Keep Vein Open Sterile Water (Sterile Water For Irrigation) 1,000 ml IRR ASDIRECTED PRN PRN Reason: delivery Terbutaline Sulfate (Brethine) 0.25 mg SUBCUT ASDIRECTED PRN PRN Reason: Tacysystole - Exam General: Reports: Alert, Oriented HEENT: Reports: Pupils Equal, Pupils Reactive, Mucous Membr. Moist/[place] Neck: Reports: Supple Lungs: Reports: Clear to Auscultation, Normal Respiratory Effort Cardiovascular: Reports: Regular Rate, Regular Rhythm GI/Abdominal Exam: Normal Bowel Sounds, Soft, Non-Tender, No Organomegaly, No Distention, Other (Uterine fundus: U-1, firm upon palpation) (Female) Exam: Normal External Exam, Uterine Tenderness, Vaginal Bleeding ( Moderate lochia rubra, no clots) Rectal (Female) Exam: Deferred Back Exam: Reports: Normal Inspection, Full Range of Motion Extremities: Normal Inspection, Normal Range of Motion, Non-Tender, No Pedal Edema, Normal Capillary Refill Skin: Reports: Warm, Dry, Intact Wound/Incisions: Reports: Healing Well Neurological: Reports: No New Focal Deficit Psy/Mental Status: Reports: Alert, Normal Affect, Normal Mood
[2019-12-14] MEDS: Docusate Sodium 100 MG Cap PO PRN (08:26)
[2019-12-14] MEDS: Ibuprofen 800 MG Tab PO PRN (08:26)
--- NOTE | 2019-12-14 10:26 | PCM48HPAN ---
Post Anesthesia Note - EVALUATION WITHIN 48HRS OF ANESTHETIC Vital Signs in Normal Range: Yes Patient Participated in Evaluation: Yes Respiratory Function Stable: Yes Airway Patent: Yes Cardiovascular Function Stable: Yes Hydration Status Stable: Yes Pain Control Satisfactory: Yes Nausea and Vomiting Control Satisfactory: Yes Mental Status Recovered: Yes Vital Signs: Last Vital Signs Temp 36.4 C 12/14/19 09:31 Pulse 73 12/14/19 09:31 Resp 16 12/14/19 09:31 BP 105/65 12/14/19 09:31 Pulse Ox 97 12/14/19 09:31 - COMMENTS/OBSERVATIONS Free Text/Narrative:: Doing well.
== END 2019-12-14 13:55 | disposition home or self-care (01) | DRG 807 ==
LOC: MW.OBCHECK 00:13 → MW.OB 00:15 → MW.OBCHECK 00:35 → OBSVTOIN 10:31 → MW.OB 16:09
PROVIDERS: ADMIT Obstetrics & Gynecology; ATTEND Obstetrics & Gynecology
PROC: 10E0XZZ Delivery of Products of Conception, External Approach (ICD-10-PCS; principal; 2019-12-13)
PROC: 10907ZC Drainage of Amniotic Fluid, Therapeutic from Products of Conception, Via Natural or Artificial Opening (ICD-10-PCS; 2019-12-13)
PROC: 3E033VJ Introduction of Other Hormone into Peripheral Vein, Percutaneous Approach (ICD-10-PCS; 2019-12-13)
PROC: 3E0R3BZ Introduction of Anesthetic Agent into Spinal Canal, Percutaneous Approach (ICD-10-PCS; 2019-12-13)
PROC: 00HU33Z Insertion of Infusion Device into Spinal Canal, Percutaneous Approach (ICD-10-PCS; 2019-12-13)
DX: O80 Encounter for full-term uncomplicated delivery (principal); Z37.0 Single live birth; Z3A.39 39 weeks gestation of pregnancy
CPT/HCPCS: 36415; 59025; 59409; 85027; 86592; 86593; 86850; 86900; 86901; A9270-GY; J2300; J2590; J7120